=== PATIENT | male | born 1960 | race Caucasian/White ===

== ENCOUNTER → 2017-06-11 | Outpatient (CLI) | payer OTHER ==
[2017-06-11 16:27] LABS: Vitamin D 25 Hydroxy 15.3 ng/mL (30.0-100.0)
== END | disposition home or self-care (01) ==
LOC: LABWHC1 08:06
PROVIDERS: ATTEND Family Medicine
DX: E83.52 Hypercalcemia (principal)
CPT/HCPCS: 36415; 82306; 82310; 83970

== ENCOUNTER → 2020-12-07 | Outpatient (CLI) | payer BC ==
--- NOTE | 2020-12-07 16:22 | NM ---
EXAMINATION TYPE: NM parathyroid w/spect DATE OF EXAM: 12/07/2020 COMPARISON: NONE HISTORY: E21.3 Hyperparathyroidism, unspecified TECHNIQUE: Following administration of 25 mCi Tc99m Sestamibi. Anterior projection images of the neck and chest were obtained 15 minutes and 3 hours post injection. SPECT images of the neck and chest were obtaine d and reconstructed in three axes. FINDINGS: Thyroid tracer washout: Delayed images demonstrate near-complete tracer washout from the thyroid. Parathyroid uptake: None. The two-hour delayed images do not demonstrate any focal abnormal persisten t uptake in the region of the parathyroid glands to suggest parathyroid adenoma. IMPRESSION: Normal parathyroid imaging study. No evidence for mediastinal uptake to suggest mediastinal parathyro id adenoma
== END | disposition home or self-care (01) ==
LOC: RADNMMAIN 11:12
PROVIDERS: ATTEND Internal Medicine
DX: E21.3 Hyperparathyroidism, unspecified (principal)
CPT/HCPCS: 78071; A9500

== ENCOUNTER → 2022-05-14 | Outpatient (CLI) | payer BC ==
--- NOTE | 2022-05-14 10:11 | XR ---
EXAMINATION TYPE: XR shoulder complete RT DATE OF EXAM: 05/14/2022 COMPARISON: NONE HISTORY: Pain TECHNIQUE: Three views are submitted. FINDINGS: The osseous structures are intact. There is no acute fracture or dislocation. Hypertrophic arthropat hy of the AC joint. IMPRESSION: 1. AC joint arthropathy. If concern for rotator cuff injury correlate with MRI.
== END | disposition home or self-care (01) ==
LOC: RADXRMAIN 09:47
PROVIDERS: ATTEND Internal Medicine
DX: M25.511 Pain in right shoulder (principal); M12.811 Other specific arthropathies, not elsewhere classified, right shoulder

== ENCOUNTER → 2022-07-02 | Outpatient (CLI) | payer BC ==
--- NOTE | 2022-07-02 15:54 | NM ---
EXAMINATION TYPE: NM parathyroid w/spect DATE OF EXAM: 07/02/2022 COMPARISON: 12/07/2020 HISTORY: Hyperparathyroidism TECHNIQUE: Following administration of 25 mCi Tc99m Sestamibi. Anterior projection images of the neck and chest were obtained 10 minutes and 3 hours post injection. SPECT images of the neck and chest were obtaine d and reconstructed in three axes. FINDINGS: Thyroid tracer washout: Delayed images demonstrate near-complete tracer washout from the thyroid. Parathyroid uptake: None. The two-hour delayed images do not demonstrate any focal abnormal persisten t uptake in the region of the parathyroid glands to suggest parathyroid adenoma. Normal uptake: There is physiological tracer uptake in the myocardium, liver, salivary glands, and th yroid gland. IMPRESSION: Normal parathyroid imaging study. No evidence for mediastinal uptake to suggest mediastinal parathyro id adenoma
== END | disposition home or self-care (01) ==
LOC: RADNMMAIN 10:47
PROVIDERS: ATTEND Internal Medicine
DX: E21.3 Hyperparathyroidism, unspecified (principal)
CPT/HCPCS: 78071; A9500